=== PATIENT | male | born 1985 | race African-American/Black ===

== ENCOUNTER 2019-06-17 10:58 | Emergency (ER) | payer OTHER ==
[~2019-06-17] VITALS: Ht 188 cm; Wt 107.0 kg
[2019-06-17] MEDS ORDERED: ONDANSETRON HCL 4MG/2ML INJ IV STA (11:34)
[2019-06-17] MEDS ORDERED: MORPHINE SULFATE 4 MG/ML CPJ (NOT FOR IM USE) IV STA (11:34)
[2019-06-17] MEDS ORDERED: SODIUM CHLORIDE 0.9% 1,000 ML IV ONE (11:34)
[2019-06-17] MEDS ORDERED: ETOMIDATE 2MG/ML 10ML VIAL IV ONE (12:30)
[2019-06-17 14:32] VITALS: BP 132/78
== END 2019-06-17 14:35 | disposition home or self-care (01) ==
LOC: ER 10:58
DX: S43.015A Anterior dislocation of left humerus, initial encounter (principal); W21.89XA Striking against or struck by other sports equipment, initial encounter; Y93.B9 Activity, other involving muscle strengthening exercises; Y92.89 Other specified places as the place of occurrence of the external cause
CPT/HCPCS: 23650; 73030; 96374; 96375; 99152; 99285; J2270; J2405; J3490; J7030; L3670

== ENCOUNTER 2025-01-06 09:03 | Emergency (ER) | payer MEDICAID, OTHER ==
[~2025-01-06] VITALS: Ht 188 cm; Wt 95.0 kg
[2025-01-06 09:09] VITALS: O2SAT 100
[2025-01-06 09:41] LABS: BASOPHILS % 0.6 % (0.0-2.0); HEMATOCRIT. 44.1 % (42.0-52.0); HEMOGLOBIN. 14.5 g/dL (14.0-18.0); LYMPHOCYTES % 34.7 % (20.0-50.0); MEAN CORPUSCULAR HEMOGLOBIN 26.4 pg (28.0-32.0); MEAN CORPUSCULAR HGB CONC 32.8 g/dL (31.0-37.0); MEAN CORPUSCULAR VOLUME 80.6 fL (80.0-94.0); MEAN PLATELET VOLUME 7.3 fl (7.4-10.4); MONOCYTES % 6.1 % (2.0-8.0); NEUTROPHILS % 56.6 % (40.0-76.0); PLATELET 196 x1000/uL (130-400); RED BLOOD CELL COUNT 5.47 mill/uL (4.7-6.1); RED CELL DISTRIBUTION WIDTH 14.8 % (11.6-14.6); WHITE BLOOD COUNT 3.6 x1000/uL (4.5-11.0)
[2025-01-06 09:50] LABS: CARBON DIOXIDE 29 mEq/L (21-32); CHLORIDE 101 mEq/L (98-107); SODIUM 139 mEq/L (136-145)
[2025-01-06 09:51] LABS: CALCIUM 9.1 mg/dL (8.7-10.4)
[2025-01-06 09:56] LABS: CREATININE 1.2 mg/dL (0.6-1.3); GLUCOSE 127 mg/dL (70-105); UREA NITROGEN BLOOD 11 mg/dL (9-23)
[2025-01-06 09:58] LABS: TROPONIN I HIGH SENSITIVITY 5 ng/L (3.0-53)
[2025-01-06 10:11] LABS: PARTIAL THROMBOPLASTIN TIME 35.4 sec (23.4-31.0)
[2025-01-06] MEDS ORDERED: DABI150C MT (12:53)
[2025-01-06 13:05] VITALS: BP 130/80; PULSE 65; RESP 16; TEMP 36.6; O2SAT 100
[2025-01-06] MEDS ORDERED: IOHEXOL-350 100 ML BOTTLE ONE (14:44)
== END 2025-01-06 13:06 | disposition home or self-care (01) ==
LOC: ER 09:03
DX: I27.82 Chronic pulmonary embolism (principal); F17.200 Nicotine dependence, unspecified, uncomplicated
CPT/HCPCS: 80048; 83880; 85025; 85610; 85730; 84484; 36415; 71045; 71275; 93005; 99285; Q9967; Z7610 ×2